=== PATIENT | female | born 1975 | race Caucasian/White ===

== ENCOUNTER 2017-07-10 16:08 | Emergency (ER) | payer BC, OTHER ==
[~2017-07-10] VITALS: Ht 162.6 cm; Wt 66.7 kg
[2017-07-10 16:13] VITALS: BP 134/84
[2017-07-10] MEDS ORDERED: diphenhydrAMINE HCL 25 MG CAPSULE ONE (16:43)
[2017-07-10] MEDS ORDERED: predniSONE 20 MG TABLET ONE (16:44)
[2017-07-10] MEDS ORDERED: DIPHENHYDRAMINE HCL 12.5 MG/5 ML UDC PO ONE (17:00)
[2017-07-10] MEDS ORDERED: predniSONE 20 MG TABLET PO ONE (17:00)
== END 2017-07-10 16:48 | disposition home or self-care (01) ==
LOC: ER 16:12
DX: R21 Rash and other nonspecific skin eruption (principal)
CPT/HCPCS: A4606; Q0163; Z7610

== ENCOUNTER 2018-02-03 09:42 | Outpatient (CLI) | payer BC | END 2018-02-03 23:59 | disposition home or self-care (01) | LOC: NM 09:42 | PROVIDERS: ATTEND Surgery | DX: R10.13 Epigastric pain (principal); R14.0 Abdominal distension (gaseous); K90.49 Malabsorption due to intolerance, not elsewhere classified | CPT/HCPCS: 78226; A9537 ==